=== PATIENT | male | born 1980 | race African-American/Black ===

== ENCOUNTER 2017-12-28 09:04 | Outpatient (CLI) | payer OTHER | END 2017-12-28 09:14 | disposition home or self-care (01) | LOC: TOM 09:04 | DX: E16.1 Other hypoglycemia (principal); E78.49 Other hyperlipidemia; R10.84 Generalized abdominal pain ==

== ENCOUNTER → 2018-02-17 08:47 | Outpatient (CLI) | payer OTHER | END | disposition home or self-care (01) | LOC: LAB 08:47 | DX: A08.8 Other specified intestinal infections (principal) ==

== ENCOUNTER 2018-02-17 09:59 | Outpatient (CLI) | payer OTHER | END 2018-02-17 10:02 | disposition home or self-care (01) | LOC: SONOGRAMA 09:59 | DX: K76.0 Fatty (change of) liver, not elsewhere classified (principal) ==